=== PATIENT | male | born 1960 | race Caucasian/White ===

== ENCOUNTER 2017-01-25 14:54 | Inpatient (IN) | payer BC ==
[~2017-01-25] VITALS: Ht 193 cm; Wt 117.3 kg
[2017-01-25 15:41] LABS: HEMATOCRIT 40.7 % (38.0-50.0); MCHC 33.4 G/DL (30.0-36.0); MCV 92.7 FL (86-99); MEAN PLAT.VOLUME 9.3 uM^3 (9.0-12.4); PLATELET COUNT 223 K/uL (156-360); RBC DIS.WIDTH-CV 11.5 % (11.8-14.6); RBC DIS.WIDTH-SD 39.4 % (39-53); RED BLOOD COUNT 4.39 M/uL (4.00-5.50); WHITE BLOOD COUNT 10.5 K/uL (4.1-10.2)
[2017-01-25 15:49] LABS: CHLORIDE 101 mEq/L (99-109); POTASSIUM 3.9 mEq/L (3.7-5.4); SODIUM 136 mEq/L (136-147)
[2017-01-25 15:51] LABS: GLUCOSE 132 mg/dL (70-99)
[2017-01-25 15:52] LABS: ANION GAP 14 MEQ/L (2-14)
[2017-01-25 15:55] LABS: GFR ESTIMATE (CALCULATED) 32 mL/min/; UREA NITROGEN (BUN) 18 mg/dL (9-23)
[2017-01-25 16:01] LABS: ADD MIUA? NO; BILIRUBIN NEGATIVE; BLOOD NEGATIVE; COLOR STRAW ((YELLOW)); GLUCOSE (STRIP) NEGATIVE; KETONES NEGATIVE; LEUKOCYTES NEGATIVE; NITRITE NEGATIVE; PROTEIN (STRIP) NEGATIVE; SPECIFIC GRAVITY 1.008 (1.000-1.030); UCUL ADDED? NO; UROBILINOGEN 0.2 MG/DL (0.2-1.0)
[2017-01-25 17:54] LABS: TOTAL BILIRUBIN 0.7 mg/dL (0.0-1.0)
[2017-01-25 17:56] LABS: ALKALINE PHOSPHATASE 111 IU/L (3-129)
[2017-01-25 17:58] LABS: DIRECT BILIRUBIN 0.3 mg/dL (0.0-0.3)
[2017-01-25 17:59] LABS: LIPASE 22 U/L (1.0-51.0)
[2017-01-25] MEDS ORDERED: PROAIR HFA8.5 GM IH (23:17)
[2017-01-25] MEDS ORDERED: SINGULAIR10 MG PO (23:17)
[2017-01-25] MEDS ORDERED: LIPITOR40 MG PO (23:17)
[2017-01-25] MEDS ORDERED: NORVASC5 MG PO (23:18)
[2017-01-25] MEDS ORDERED: LITE COAT ASPI325 M1 PO (23:18)
[2017-01-25] MEDS ORDERED: LOPRESSOR50 MG PO (23:18)
[2017-01-25] MEDS ORDERED: NASONEX17 GM BOTH NARES (23:18)
[2017-01-25] MEDS ORDERED: ZYRTEC10 M3 PO (23:19)
[2017-01-26 08:15] VITALS: BP 139/76
[2017-01-26 09:38] LABS: ANION GAP 10 MEQ/L (2-14); CHLORIDE 107 MEQ/L (99-109); SAMPLE HEMOLYSIS CHECK 0; SAMPLE ICTERIC CHECK 0; SAMPLE LIPEMIA CHECK 0; SODIUM 140 MEQ/L (136-147)
[2017-01-26 09:43] LABS: GFR ESTIMATE (CALCULATED) 33 mL/min/; GLUCOSE 122 mg/dL (70-99); UREA NITROGEN (BUN) 18 mg/dL (9-23)
[2017-01-26 16:35] VITALS: BP 128/74
[2017-01-27 00:08] VITALS: BP 149/79
[2017-01-27 06:19] LABS: HEMATOCRIT 36.3 % (38.0-50.0); MCH 31.1 PG (29.0-34.0); MCHC 32.5 G/DL (30.0-36.0); MCV 95.8 FL (86-99); MEAN PLAT.VOLUME 9.5 uM^3 (9.0-12.4); PLATELET COUNT 168 K/uL (156-360); RBC DIS.WIDTH-SD 41.6 % (39-53); RED BLOOD COUNT 3.79 M/uL (4.00-5.50); WHITE BLOOD COUNT 7.3 K/uL (4.1-10.2)
[2017-01-27 06:40] LABS: ANION GAP 8 MEQ/L (2-14); CHLORIDE 108 MEQ/L (99-109); GFR ESTIMATE (CALCULATED) 32 mL/min/; GLUCOSE 100 mg/dL (70-99); POTASSIUM 4.2 MEQ/L (3.7-5.4); SAMPLE HEMOLYSIS CHECK 0; SAMPLE ICTERIC CHECK 0; SAMPLE LIPEMIA CHECK 0; SODIUM 140 MEQ/L (136-147); UREA NITROGEN (BUN) 21 mg/dL (9-23)
[2017-01-27 08:00] VITALS: BP 143/70
[2017-01-27 15:35] VITALS: BP 143/70
[2017-01-27 19:12] VITALS: BP 154/82
[2017-01-27 23:52] VITALS: BP 150/77
[2017-01-28 04:33] VITALS: BP 136/69
[2017-01-28 06:17] LABS: ANION GAP 9 MEQ/L (2-14); CHLORIDE 107 MEQ/L (99-109); GFR ESTIMATE (CALCULATED) 29 mL/min/; GLUCOSE 98 mg/dL (70-99); POTASSIUM 3.9 MEQ/L (3.7-5.4); SAMPLE HEMOLYSIS CHECK 0; SAMPLE ICTERIC CHECK 0; SAMPLE LIPEMIA CHECK 0; SODIUM 139 MEQ/L (136-147); UREA NITROGEN (BUN) 23 mg/dL (9-23)
[2017-01-28 08:02] VITALS: BP 168/80
[2017-01-28] MEDS ORDERED: TAMSULOSIN HCL0.4 MG PO (09:47)
[2017-01-28 11:28] VITALS: BP 138/83
[2017-01-28 13:51] LABS: ANION GAP 9 MEQ/L (2-14); CHLORIDE 107 MEQ/L (99-109); GFR ESTIMATE (CALCULATED) 29 mL/min/; GLUCOSE 133 mg/dL (70-99); SAMPLE HEMOLYSIS CHECK 0; SAMPLE ICTERIC CHECK 0; SAMPLE LIPEMIA CHECK 0; SODIUM 140 MEQ/L (136-147); UREA NITROGEN (BUN) 21 mg/dL (9-23)
== END 2017-01-28 14:45 | disposition home or self-care (01) | DRG 694 ==
LOC: EME 14:54 → EDOF 23:28 → 5EAST 23:28 → ENRESERV 23:29 → EDOF 01-26 00:26 → 5EAST 01-26 00:28 → ENPENDDIS 01-28 → 5EAST 01-28 14:45
PROVIDERS: Hospitalist; Nurse Practitioner Adult Health
DX: N13.2 Hydronephrosis with renal and ureteral calculous obstruction (principal); N17.9 Acute kidney failure, unspecified; N18.4 Chronic kidney disease, stage 4 (severe); I25.10 Atherosclerotic heart disease of native coronary artery without angina pectoris; D72.829 Elevated white blood cell count, unspecified; I12.9 Hypertensive chronic kidney disease with stage 1 through stage 4 chronic kidney disease, or unspecified chronic kidney disease; N25.81 Secondary hyperparathyroidism of renal origin; E78.5 Hyperlipidemia, unspecified; Z79.82 Long term (current) use of aspirin; Z87.442 Personal history of urinary calculi; Z95.1 Presence of aortocoronary bypass graft; Z79.899 Other long term (current) drug therapy
CPT/HCPCS: 74000; 74176; 80048; 80048 91; 80076; 81003; 83690; 85027; 94799; 99281; 99285; J1644; J1885; J2270; J3010; J7030